=== PATIENT | female | born 1945 | race Caucasian/White ===

== ENCOUNTER 2016-11-28 11:33 | Emergency (ER) | payer MEDICARE ==
--- NOTE | 2016-11-28 13:02 | ER NURSING DOCUMENTATION ---
Nurse's Notes [facility] Name:Ayleen Luther Age:71 yrs Sex:Female :1945 Arrival Date:11/28/2016 Time:11:33 Bed1 Private MD: Diagnosis:Hypertension;Insomnia;Headache: Etiology Unclear Presentation: 11/28 11:41 Acuity: ELISHA 3 [facility] 11:49 Presenting complaint: Patient states: she has had a bad MUNIZ on and off since Tuesday [facility] and states she has had problems with high blood pressure on and off for 6 months with her doctors in [place] trying "different medications" to control it. Pt. also had back surgery on 11-02-16. Pt. states she might be a little more SOB lately and also states she couldn't sleep last night. Transition of care: Home. Notified ED Physician of patient's arrival and CC Dr. Retana notified. 11:49 Method Of Arrival: Private Vehicle [facility] Triage Assessment: 11:59 General: Appears in no apparent distress, well developed, well nourished, well groomed, mn1 Behavior is cooperative, pleasant. Pain: Complains of pain in Head. Historical: - Allergies: No known drug Allergies; - Home Meds: 1. methocarbamol 750 mg oral tab 1 tab every 8 hours as needed. 2. pregabalin 150 mg oral cap 3 times per day 3. trazodone 50 mg oral tab 4. sertraline 100 mg oral tab 5. Omeprazole Oral 6. metoprolol tartrate 25 mg oral tab 1 tab once daily 7. losartan 50 mg oral tab 1 tab once daily - PMHx: Hypertension; - PSHx: Hysterectomy; Knee surgery; Back surgery; - Ebola Screening: : Patient negative for fever greater than or equal to 101.5 degrees Fahrenheit, and additional compatible Ebola Virus Disease symptoms. Patient denies exposure to infectious person. Patient denies travel to an Ebola-affected area in the 21 days before illness onset. No symptoms or risks identified at this time. . - Immunization history: Pneumococcal vaccine is up to date, Flu Vaccine < 1 year. - Social history: Smoking status: Patient states was never smoker of tobacco. Patient/guardian denies using alcohol, street drugs, IV drugs, marijuana. Screenin:00 Infectious Disease Risk None. Abuse screen: Denies threats or abuse. Nutritional mn1 screening: No deficits noted. Vital Signs: 11:43 BP 208 / 73; Pulse 65; Resp 16; Temp 97.3; Pulse Ox 97% ; Weight 64.86 kg; Height 5 ft. jt 1 in. (154.94 cm); Pain 3/10; 13:00 BP 179 / 80; Pulse 72; Resp 16; Pulse Ox 93% on R/A; sc1 11:43 Body Mass Index 27.02 (64.86 kg, 154.94 cm) jt ED Course: 11:35 Patient arrived in ED. jt 11:37 Jose R New, RN is Primary Nurse. tg 11:41 Primary Nurse role handed off by Jose R New RN [facility] 11:41 Shanna Daily RN is Primary Nurse. [facility] 11:41 Triage completed. mn1 12:00 Miguel Retana MD is Attending Physician. mn 12:00 Notified ED Physician of patient's arrival and chief complaint. Dr. Retana notified. Arm mn1 band placed on Bed in low position Call Light in Reach Gowned HOB Elevated Side rails up x1. 13:00 Valuables Remains with patient. mn1 Administered Medications: No medications were administered Outcome: 12:51 Discharge ordered by . mn 13:00 Discharged to home ambulatory. [facility] 13:00 Condition: stable 13:00 Discharge instructions given to patient, Instructed on discharge instructions, follow up and referral plans. medication usage, Demonstrated understanding of instructions, medications, Prescriptions given X 2. 13:01 Patient left the ED. [facility] Signatures: Jose R New RN RN Shanna Daily RN RN [facility] Miguel Retana MD MD mn Geena Quinteros
--- NOTE | 2016-11-28 13:02 | ER PHYSICIAN DOCUMENTATION ---
Physician Documentation [facility] Name:Ayleen Luther Age:71 yrs Sex:Female :1945 Arrival Date:11/28/2016 Time:11:33 Bed1 Private MD: Miguel Mishra Disposition: 11/28/16 12:51 Discharged to Home/Self Care. Impression: Hypertension, Insomnia, Headache: Etiology Unclear. - Condition is Fair. - Discharge Instructions: HEADACHE, Unspecified, HYPERTENSION, Established, Out of Control, INSOMNIA. - Prescriptions for sumatriptan succinate 100 mg Oral tablet - take 1 tablet by ORAL route as directed once with fluids as early as possible after the onset of a migraine attack;may repeat after 2 hours if headache returns, not to exceed 200mg in 24hrs; 9 tablet. Ambien 10 mg Oral - take 1 tablet by ORAL route At bedtime As needed; 3 tablet. - Medical Reconciliation form form. - Follow up: Private Physician; When: 1 - 2 days; Reason: Recheck today's complaints, Continuance of care. - Problem is an ongoing problem. - Symptoms are unchanged. HPI: 11/28 12:45 This 71 yrs old Female presents to ER via Private Vehicle with complaints of sc High Blood Pressure. 12:45 The patient has elevated blood pressure and discovered this at home. Onset: The sc symptom(s)/episode began/occurred 6 month(s) ago. Modifying factors: The symptoms are aggravated by discontinuation of meds, oxycodone a few days ago, recent surgeries on back, pneumonia, shingles and HAs that wax and wane through the day and insomnia possibly worsening bp and vo. Associated signs and symptoms: Pertinent negatives: chest pain, visual changes, vomiting, weakness. The patient has experienced similar episodes in the past, multiple times. wants to try sumatriptan which has been effective for her in past. Historical: - Allergies: No known drug Allergies; - Home Meds: 1. methocarbamol 750 mg oral tab 1 tab every 8 hours as needed. 2. pregabalin 150 mg oral cap 3 times per day 3. trazodone 50 mg oral tab 4. sertraline 100 mg oral tab 5. Omeprazole Oral 6. metoprolol tartrate 25 mg oral tab 1 tab once daily 7. losartan 50 mg oral tab 1 tab once daily - PMHx: Hypertension; - PSHx: Hysterectomy; Knee surgery; Back surgery; - Ebola Screening: : Patient negative for fever greater than or equal to 101.5 degrees Fahrenheit, and additional compatible Ebola Virus Disease symptoms. Patient denies exposure to infectious person. Patient denies travel to an Ebola-affected area in the 21 days before illness onset. No symptoms or risks identified at this time. . - Immunization history: Pneumococcal vaccine is up to date, Flu Vaccine < 1 year. - Social history: Smoking status: Patient states was never smoker of tobacco. Patient/guardian denies using alcohol, street drugs, IV drugs, marijuana. ROS: 12:48 Eyes: Negative for injury, pain, redness, and discharge. sc ENT: Negative for injury, pain, and discharge. Neck: Negative for injury, pain, and swelling. Respiratory: Negative for shortness of breath, cough, wheezing, and pleuritic chest pain. Abdomen/GI: Negative for abdominal pain, nausea, vomiting, diarrhea, and constipation. Back: Negative for injury and pain. MS/Extremity: Negative for injury and deformity. 12:48 Skin: Negative for injury, rash, and discoloration. sc 12:48 Constitutional: Positive for fatigue. 12:48 Cardiovascular: Negative for chest pain, edema, orthopnea, palpitations. 12:48 Neuro: Positive for headache. 12:48 Psych: Positive for insomnia. Exam: Head/Face: Normocephalic, atraumatic. Eyes: Pupils equal round and reactive to light, extra-ocular motions intact. Lids and lashes normal. Conjunctiva and sclera are non-icteric and not injected. Cornea within normal limits. Periorbital areas with no swelling, redness, or edema. ENT: Nares patent. No nasal discharge, no septal abnormalities noted. Tympanic membranes are normal and external auditory canals are clear. Oropharynx with no redness, swelling, or masses, exudates, or evidence of obstruction, uvula midline. Mucous membranes moist. Neck: Trachea midline, no thyromegaly or masses palpated, and no cervical lymphadenopathy. Supple, full range of motion without nuchal rigidity, or vertebral point tenderness. No meningismus. Chest/axilla: Normal chest wall appearance and motion. Nontender with no deformity. No lesions are appreciated. Cardiovascular: Regular rate and rhythm with a normal S1 and S2. No gallops, murmurs, or rubs. Normal PMI, no JVD. No pulse deficits. Respiratory: Lungs have equal breath sounds bilaterally, clear to auscultation and percussion. No rales, rhonchi or wheezes noted. No increased work of breathing, no retractions or nasal flaring. Abdomen/GI: Soft, non-tender, with normal bowel sounds. No distension or tympany. No guarding or rebound. No evidence of tenderness throughout. Skin: Warm, dry with normal turgor. Normal color with no rashes, no lesions, and no evidence of cellulitis. MS/ Extremity: Pulses equal, no cyanosis. Neurovascular intact. Full, normal range of motion, negative Homans's, calves equal bilaterally. 12:48 Neuro: Awake and alert, GCS 15, oriented to person, place, time, and situation. nc Cranial nerves II-XII grossly intact. Motor strength 5/5 in all extremities. Sensory grossly intact. Cerebellar exam normal. Normal gait. 12:48 Constitutional: The patient appears alert, awake, listless. 12:48 Cardiovascular: Rate: normal, Rhythm: regular. 12:53 Neuro: Orientation: is normal. nc Vital Signs: 11:43 BP 208 / 73; Pulse 65; Resp 16; Temp 97.3; Pulse Ox 97% ; Weight 64.86 kg; Height 5 ft. jt 1 in. (154.94 cm); Pain 3/10; 13:00 BP 179 / 80; Pulse 72; Resp 16; Pulse Ox 93% on R/A; sc1 11:43 Body Mass Index 27.02 (64.86 kg, 154.94 cm) MDM: 12:17 Patient medically screened. nc 12:50 Differential diagnosis: htn poorly controlled and multiple recent health problems, sc narcotic termination, back surgery recovery. Data reviewed: vital signs, nurses notes, and as a result, I will discharge patient. Counseling: I had a detailed discussion with the patient and/or guardian regarding: the historical points, exam findings, and any diagnostic results supporting the discharge/admit diagnosis, the need for outpatient follow up, to return to the emergency department if symptoms worsen or persist or if there are any questions or concerns that arise at home. Dispensed Medications: No medications were administered Signatures: Shanna Daily RN RN sc1 Chew, Miguel, MD MD sc
== END 2016-11-28 13:02 | disposition home or self-care (01) ==
LOC: ER 11:33
DX: I10 Essential (primary) hypertension (principal); G47.00 Insomnia, unspecified; R51 Headache; R53.83 Other fatigue; Z98.890 Other specified postprocedural states; Z79.899 Other long term (current) drug therapy
CPT/HCPCS: 99282